=== PATIENT | male | born 2000 | race Caucasian/White ===

== ENCOUNTER 2018-06-11 12:22 | Emergency (ER) | payer BC ==
[~2018-06-11] VITALS: Ht 182.9 cm; Wt 88.6 kg
[2018-06-11 12:26] VITALS: TEMP 100.3
[2018-06-11] MEDS ORDERED: NOVOLOG 100U100 U/M1 SQ (13:29)
[2018-06-11] MEDS ORDERED: TAMIFLU 75MG75 MG PO (14:00)
[2018-06-11 14:09] VITALS: BP 132/70; PULSE 90
== END 2018-06-11 14:09 | disposition home or self-care (01) ==
LOC: COL.ER 12:22
DX: J11.1 Influenza due to unidentified influenza virus with other respiratory manifestations (principal); E10.9 Type 1 diabetes mellitus without complications